=== PATIENT | male | born 1970 | race Hispanic/Latino ===

== ENCOUNTER → 2023-12-29 | Day surgery (SDC) | payer MEDICAID, SELFPAY ==
[2023-12-29 08:50] VITALS: BMI 53.1
--- NOTE | 2023-12-29 14:33 | SUR.PREOP ---
LATE ENTRY: PT WAS INFORMED BY NURSING STAFF THAT PROCEDURE WILL BE CANCELLED DUE TO HIGH BMI AND OTHER COMORBIDITIES PER ANESTHESIOLOGIST DR. LEIVA. DR. LEIVA RECOMMENDED THAT PT WILL NEED A FULL CARDIAC WORKUP PRIOR TO COLONOSCOPY PROCEDURE. PT WAS INFORMED TO FOLLOW UP WITH PCP, VERBALIZED UNDERSTANDING. PT WAS INFORMED VIA MEDICAL RECORDS ANALYST RADHA RILEY.
== END | disposition home or self-care (01) ==
PROVIDERS: PCP Family Medicine; Referring Provider Surgery; Visit Provider Surgery
PROC: 0DBE8ZX Excision of Large Intestine, Via Natural or Artificial Opening Endoscopic, Diagnostic (ICD-10-PCS; CPT 45380; principal; 2023-12-29 14:15)
DX: R19.4 Change in bowel habit (principal); Z53.9 Procedure and treatment not carried out, unspecified reason
CPT/HCPCS: 45378; 80053